=== PATIENT | male | born 1955 | race Caucasian/White ===

== ENCOUNTER 2017-06-13 08:24 | Day surgery (SDC) | payer BC ==
[~2017-06-13] VITALS: Ht 182.9 cm; Wt 82.3 kg
[~2017-06-13 08:24] MED LIST: GLUCHON; MULVITA
== END 2017-06-13 10:52 | disposition home or self-care (01) ==
LOC: ORSCSDS 08:24
PROVIDERS: Internal Medicine Gastroenterology
PROC: 0DBC8ZX Excision of Ileocecal Valve, Via Natural or Artificial Opening Endoscopic, Diagnostic (ICD-10-PCS; principal; 2017-06-13 09:45)
PROC: 0DBM8ZX Excision of Descending Colon, Via Natural or Artificial Opening Endoscopic, Diagnostic (ICD-10-PCS; principal; 2017-06-13 09:45)
DX: Z12.11 Encounter for screening for malignant neoplasm of colon (principal); D12.0 Benign neoplasm of cecum; D12.4 Benign neoplasm of descending colon; Z86.010 Personal history of colon polyps; K57.30 Diverticulosis of large intestine without perforation or abscess without bleeding; K21.9 Gastro-esophageal reflux disease without esophagitis; Z79.899 Other long term (current) drug therapy
CPT/HCPCS: 88305; J1980; J7120

== ENCOUNTER → 2019-07-12 | Outpatient (CLI) | payer BC | END | disposition home or self-care (01) | LOC: PLD 11:01 → LAB SHORT 11:01 | DX: L82.1 Other seborrheic keratosis (principal) | CPT/HCPCS: 88305 ==

== ENCOUNTER → 2021-07-09 | Outpatient (CLI) | payer MEDICARE, BC ==
[2021-07-09 12:01] LABS: Creatinine Urine 53.6 mg/dL (27.00-270.00)
== END | disposition home or self-care (01) ==
LOC: LAB 06:06 → LAB SHORT 06:06
PROVIDERS: Family Medicine
DX: I16.0 Hypertensive urgency (principal)
CPT/HCPCS: 81050; 82570

== ENCOUNTER → 2021-07-24 | Outpatient (CLI) | payer MEDICARE, BC ==
[2021-07-28 20:11] LABS: 5-HIAA, URINE 2.9 mg/L (Undefined)
== END | disposition home or self-care (01) ==
LOC: LAB SHORT 09:04 → LAB 09:04
PROVIDERS: Family Medicine
DX: R89.9 Unspecified abnormal finding in specimens from other organs, systems and tissues (principal)
CPT/HCPCS: 82570; 83497

== ENCOUNTER 2021-09-11 10:20 | Day surgery (SDC) | payer MEDICARE, BC ==
[~2021-09-11] VITALS: Ht 182.9 cm; Wt 81.4 kg
[~2021-09-11 10:20] MED LIST changes: +Acetaminophen650 M1 PO; +GENICIN500 MG PO; +MULVITA PO; +PROSTATE VITAMIN PO
--- NOTE | 2021-09-11 13:34 | NUR ---
ARRIVED FROM [facility] DIASTOLIC HIGH DR WROTE PARAMETERS NEXT DIASTOLIC 90 NO DRSSINGS JUST OPSITES INTACT WITH SKIN GLUE NO BLEEDING TIMES 3
--- NOTE | 2021-09-11 13:49 | NUR ---
PATIENT CO PAIN GIVEN RX AT 1340 FOR PAIN 5/10 AND AGAIN AT 1345 FOR PAIN 7/10.
--- NOTE | 2021-09-11 13:59 | NUR ---
GAVE THIRD DOSE OF PAIN RX CONTINUES TO RATE PAIN A T 11/08
--- NOTE | 2021-09-11 14:16 | NUR ---
CALLED DR BENITEZ RE NO INMPROVEMENT AFTER PAIN RX GIVEN TO PATIENT. GAVE NEW ORDER FOR PAIN, RX GIVEN TO PATIENT.
--- NOTE | 2021-09-11 14:45 | NUR ---
TAKEN TO STEP GAVE REPORT TO MARLENE ANDERSON VSS
--- NOTE | 2021-09-11 14:46 | NUR ---
REPORT FROM GA ROSE RN. PT AXOX4, ABLE TO REPOSITION SELF IN BED.
--- NOTE | 2021-09-11 14:55 | NUR ---
PT AXOX4, REPOSITIONS SELF IN BED, REQUESTING PO FLUIDS AND FOOD. PT HAS THREE INCISION SITES ON ABDOMEN. ONE ABOVE AND TO THE LEFT OF THE UMBILICUS BY 1-2 CM'S, ONE INCISION LATERAL TO THE LEFT AND LATERAL TO THE RIGHT OF THE CENTER INCISION SITE. ALL THREE SITES COVERED WITH DERMABOND AND THEY ARE ALL CLEAN, DRY AND INTACT. NO DRAINAGE, INFLAMMATION, REDNESS NOTED.
--- NOTE | 2021-09-11 15:10 | NUR ---
PT BEGAN TO EAT CRACKERS AND TOOK A SIP OF JUICE AND BEGAN TO FEEL "WOOZY". PT ADVISED TO WITHHOLD EATING AND DRINKING UNTIL NOT FEELING WOOZY ANYMORE. PT AGREES. PT RECLINED IN BED AND PROVIDED WITH COOL WASHCLOTH TO FOREHEAD. PT RESTING IN BED COMFORTABLY WITH LIGHTS LOW AND AT BEDSIDE.
--- NOTE | 2021-09-11 15:54 | NUR ---
PT'S 3 INCISION SITES ON ABDOMEN ARE CLEAN, DRY AND INTACT.
--- NOTE | 2021-09-11 16:46 | NUR ---
Patient up to Ambulate independently. Gait steady. Discharge instructions reviewed with patient. Patient verbalizes understanding. Copy given to patient to take home. Dressings to procedure site clean, dry, intact with no visible drainage, swelling, erythema or bruising noted. Patient States Post-Procedure ride home has been arranged. Discharged via wheelchair to private car for ride home. ALL BELONGINGS RETURNED TO PATIENT.
== END 2021-09-11 23:16 | disposition home or self-care (01) ==
LOC: ORSCMMR 10:20 → ORD 10:30 → ORSCMMR 10:30
PROVIDERS: Surgery
PROC: 8E0W4CZ Robotic Assisted Procedure of Trunk Region, Percutaneous Endoscopic Approach (ICD-10-PCS; principal; 2021-09-11 12:00)
PROC: 0YUA4JZ Supplement Bilateral Inguinal Region with Synthetic Substitute, Percutaneous Endoscopic Approach (ICD-10-PCS; principal; 2021-09-11 12:00)
DX: K40.90 Unilateral inguinal hernia, without obstruction or gangrene, not specified as recurrent (principal); K40.91 Unilateral inguinal hernia, without obstruction or gangrene, recurrent; J45.909 Unspecified asthma, uncomplicated; K21.9 Gastro-esophageal reflux disease without esophagitis
CPT/HCPCS: 49651; 49650; S2900; A9270; C1781; J0690; J1100; J1170; J2250; J2405; J2704; J2765; J3010; J7120

== ENCOUNTER 2023-03-28 09:13 | Day surgery (SDC) | payer MEDICARE, BC ==
[~2023-03-28] VITALS: Ht 182.9 cm; Wt 80.3 kg
[2023-03-28] MEDS ORDERED: Cialis5 MG (09:55)
[2023-03-28] MEDS ORDERED: ASPI81CH PO (09:56)
[2023-03-28] MEDS ORDERED: Diflucan100 MG PO (09:56)
[2023-03-28 14:37] VITALS: BP 153/96
== END 2023-03-28 12:30 | disposition home or self-care (01) ==
LOC: ORSCSDS 09:13
DX: K21.00 Gastro-esophageal reflux disease with esophagitis, without bleeding (principal); Z12.11 Encounter for screening for malignant neoplasm of colon; Z86.010 Personal history of colon polyps; K57.30 Diverticulosis of large intestine without perforation or abscess without bleeding; K44.9 Diaphragmatic hernia without obstruction or gangrene; Z79.899 Other long term (current) drug therapy; Z79.82 Long term (current) use of aspirin
CPT/HCPCS: 43239; G0121; 88305; 88312; J2704; J7120

== ENCOUNTER 2023-05-16 11:10 | Day surgery (SDC) | payer MEDICARE, BC ==
[~2023-05-16] VITALS: Ht 182.9 cm; Wt 83.4 kg
[~2023-05-16 11:10] MED LIST changes: +ASPI81CH PO; +Cialis5 MG; +Diflucan100 MG PO
[2023-05-16] MEDS ORDERED: BETA.05TCA (11:47)
[2023-05-16] MEDS ORDERED: Triamcinolone A15 G2 (11:47)
[2023-05-16 13:25] VITALS: BP 144/78
== END 2023-05-16 13:24 | disposition home or self-care (01) ==
LOC: ORSCSDS 11:10
PROVIDERS: Internal Medicine Gastroenterology
PROC: 0DJ08ZZ Inspection of Upper Intestinal Tract, Via Natural or Artificial Opening Endoscopic (ICD-10-PCS; principal; 2023-05-16 12:15)
DX: K21.9 Gastro-esophageal reflux disease without esophagitis (principal); K44.9 Diaphragmatic hernia without obstruction or gangrene; Z87.11 Personal history of peptic ulcer disease; Z79.899 Other long term (current) drug therapy
CPT/HCPCS: J2704; J7120